=== PATIENT | male | born 1965 | race Caucasian/White ===

== ENCOUNTER 2017-06-22 11:51 | Inpatient (IN) | payer BC ==
[~2017-06-22] VITALS: Ht 176.5 cm; Wt 110.9 kg
[2017-06-22 12:20] VITALS: BP 118/73
[2017-06-22] MEDS ORDERED: CYCLOBENZAPRINE 10 MG TABLET. PO PRN (12:30)
[2017-06-22] MEDS ORDERED: ONDANSETRON ODT 4 MG TAB.RAPDIS PO PRN (12:30)
[2017-06-22] MEDS: IV NORMAL SALINE 1,000ML 1,000 ML IV SCH ×3 (12:30→20:48)
[2017-06-22] MEDS ORDERED: MORPHINE SULFATE 4 MG/ML DISP.SYRIN. IV PRN (12:30)
[2017-06-22] MEDS ORDERED: CYCL-331 PO (12:38)
[2017-06-22] MEDS ORDERED: NAPR-514 PO (12:38)
[2017-06-22] MEDS ORDERED: SULF1TAB24 PO (12:38)
[2017-06-22] MEDS: MORPHINE SULFATE 4 MG/ML DISP.SYRIN. IV PRN ×2 (12:42→20:49)
[2017-06-22 13:01] LABS: BASO % 1 % (0-3); EOS # 0.2 x10^3/uL (0.0-0.7); EOS % 2 % (0-3); HEMOGLOBIN 15.2 g/dL (13.0-17.5); LYMPH # 2.1 x10^3/uL (1.0-4.8); LYMPH % 26 % (24-48); MEAN CORPUSCULAR HEMOGLOBIN 29 pg (25-35); MEAN CORPUSCULAR HGB CONC 34 g/dL (31-37); MEAN CORPUSCULAR VOLUME 87 fL (79-100); MONO # 0.6 x10^3/uL (0.0-1.1); MONO % 8 % (0-9); NEUT % 63 % (31-73); PLATELET COUNT 225 x10^3/uL (140-400); RED CELL DISTRIBUTION WIDTH 13.8 % (11.5-14.5)
[2017-06-22 13:12] LABS: BACTERIA,URINE 0 /HPF (0-FEW); BILIRUBIN,URINE NEG (NEG); CLARITY,URINE HAZY; COLOR,URINE STRAW; GLUCOSE,URINE NEG (NEG); NITRITE,URINE NEG (NEG); SQUAMOUS EPITHELIAL CELL,UR OCC /LPF; UROBILINOGEN,URINE 0.2 mg/dL (0.2 mg/dL)
[2017-06-22 13:21] LABS: ALBUMIN 3.5 g/dL (3.4-5.0); ALBUMIN/GLOBULIN RATIO 0.8 (1.0-1.7); CALCIUM 8.7 mg/dL (8.5-10.1); CREATININE 1.3 mg/dL (0.7-1.3); GFR 58.2; POTASSIUM 4.2 mmol/L (3.5-5.1); TOTAL BILIRUBIN 0.4 mg/dL (0.2-1.0); TOTAL PROTEIN 7.9 g/dL (6.4-8.2)
--- NOTE | 2017-06-22 16:02 | RAD ---
Renal ultrasound, 06/22/2017: HISTORY: Kidney stones The right kidney measures 12.8 cm in length while the left kidney measures 12.7 cm. There are several small echogenic foci centrally in both kidneys representing the patient's known intrarenal calculi. The renal parenchymal echogenicity is otherwise unremarkable. There is no evidence of hydronephrosis or a renal mass. The partially filled urinary bladder is unremarkable. IMPRESSION: 1. Bilateral intrarenal calculi, best demonstrated on the recent CT study. 2. No current hydronephrosis. Electronically signed by: Eliot Castrejon MD (06/22/2017 3:58 PM) [facility]
[2017-06-22 20:08] VITALS: BP 115/71
[2017-06-22] MEDS: LACTOBACILLUS RHAMNOSUS GG 1 CAPSULE. PO SCH (20:48)
[2017-06-22] MEDS: SMZ/TMP 800/160MG TABLET. PO SCH (20:49)
[2017-06-22] MEDS: NAPROXEN 500 MG TABLET PO SCH (20:49)
[2017-06-22] MEDS ORDERED: SMZ/TMP 800/160MG TABLET. PO SCH (21:00)
[2017-06-23 00:58] VITALS: BP 99/61
[2017-06-23 06:38] VITALS: BP 101/61
[2017-06-23] MEDS ORDERED: TAMSULOSIN 0.4 MG CAP.ER.24H. PO SCH (09:00)
[2017-06-23] MEDS: LACTOBACILLUS RHAMNOSUS GG 1 CAPSULE. PO SCH (09:20)
[2017-06-23] MEDS: SMZ/TMP 800/160MG TABLET. PO SCH (09:20)
[2017-06-23] MEDS: NAPROXEN 500 MG TABLET PO SCH (09:21)
--- NOTE | 2017-06-23 10:12 | DS ---
DATE OF DISCHARGE: 06/23/2017 HOSPITAL COURSE: The patient was admitted with severe left flank pain. The patient has a long history of kidney stones. He has had multiple kidney stones and Dr. Negron in the past has taken them out. Apparently, had used lithotripsy because of his unusual positioning. The patient otherwise is resting fairly comfortably, he was receiving IV pain medication, IV antibiotic therapy. The patient continued to be monitored carefully, he will be transferred down to [place] for further urological evaluation that is not available at this institution. IMPRESSION: Nephrolithiasis with severe pain, not able to pass them on his own, will need to go ahead and transfer for urological consultation. HARSHAD CHAVARRIA MD DR: MELISSA/amira JOB#: [id number] / [id number]
[2017-06-23 11:27] VITALS: BP 104/63
== END 2017-06-23 11:37 | disposition short-term general hospital (02) | DRG 694 ==
LOC: 1 SOUTH 12:00
PROVIDERS: ADMIT Family Medicine; ATTEND Family Medicine
DX: N20.0 Calculus of kidney (principal)
CPT/HCPCS: 36415; 74176; 76770; 80053; 81001; 85025; 87086; J1956; J2270; J7030

== ENCOUNTER → 2018-03-29 | Outpatient (CLI) | payer BC ==
[~2018-03-29] MED LIST: CYCL-331 PO; NAPR-514 PO; SULF1TAB24 PO
--- NOTE | 2018-03-29 11:03 | RAD ---
Examination: CT of the abdomen pelvis without contrast HISTORY: History of kidney stones COMPARISON: 06/19/2017 TECHNIQUE: Axial CT images of the abdomen pelvis were performed without contrast. Coronal and sagittal reformats are performed Exposure: One or more of the following individualized dose reduction techniques were utilized for this examination: 1. Automated exposure control 2. Adjustment of the mA and/or kV according to patient size 3. Use of iterative reconstruction technique FINDINGS: The bibasilar lungs are clear. No evidence of free air identified in the abdomen. The evaluation of the solid organs is limited due to lack of IV contrast. Evaluation of bowel is limited due to lack of oral contrast. The visualized noncontrasted liver demonstrates mild decreased attenuation. The visualized spleen, adrenals grossly appears unremarkable. The gallbladder is mildly distended. Unchanged large calcified gallstone identified in the proximal gallbladder. The stomach is mildly distended. The visualized pancreas grossly appears unchanged. The small bowel is nondilated. Feces and gas noted in the colon. The appendix is normal. Multiple calcified bilateral intrarenal collecting system identified in the bilateral kidneys. The largest intrarenal collecting system calculus measures 6 mm in the right kidney. Mild left-sided hydronephrosis. Moderate right-sided hydronephrosis and mild right hydroureter identified with calculus measuring 5.5 mm in the distal right ureter. The urinary bladder is mildly distended. Caliber of the aorta grossly appears unremarkable. Moderate degenerative changes lumbar spine. IMPRESSION: 1. Moderate right-sided hydronephrosis and mild right hydronephrosis with 5.5 mm calculus in the distal right ureter just proximal to the right ureterovesical junction. Minimal left-sided hydronephrosis without obstructing calculus on the left. 2. Bilateral nephrolithiasis. 3. Cholelithiasis unchanged. 4. Mild hepatic steatosis. Electronically signed by: Aba Rolon MD (03/29/2018 11:00 AM) [place] [id number]
== END | disposition home or self-care (01) ==
LOC: CT 10:23
PROVIDERS: ATTEND Family Medicine
DX: N13.2 Hydronephrosis with renal and ureteral calculous obstruction (principal); K80.20 Calculus of gallbladder without cholecystitis without obstruction; K76.0 Fatty (change of) liver, not elsewhere classified; N32.89 Other specified disorders of bladder
CPT/HCPCS: 74176

== ENCOUNTER → 2018-10-05 | Outpatient (CLI) | payer BC ==
[~2018-10-05] MED LIST changes: +IOHEXOL 240 MG/ML 50ML VIAL. ONE
[2018-10-05 10:51] LABS: BASO % 0 % (0-3); EOS # 0.1 x10^3/uL (0.0-0.7); EOS % 1 % (0-3); HEMATOCRIT 45.8 % (39.0-53.0); HEMOGLOBIN 15.2 g/dL (13.0-17.5); LYMPH # 1.9 x10^3/uL (1.0-4.8); LYMPH % 25 % (24-48); MEAN CORPUSCULAR HEMOGLOBIN 29 pg (25-35); MEAN CORPUSCULAR HGB CONC 33 g/dL (31-37); MEAN CORPUSCULAR VOLUME 88 fL (79-100); MONO # 0.6 x10^3/uL (0.0-1.1); MONO % 8 % (0-9); NEUT # 4.8 x10^3uL (1.8-7.7); NEUT % 65 % (31-73); PLATELET COUNT 240 x10^3/uL (140-400); RED CELL DISTRIBUTION WIDTH 14.2 % (11.5-14.5); WHITE BLOOD COUNT 7.3 x10^3/uL (4.0-11.0)
[2018-10-05 11:14] LABS: ALBUMIN 3.4 g/dL (3.4-5.0); ALBUMIN/GLOBULIN RATIO 0.7 (1.0-1.7); CALCIUM 8.9 mg/dL (8.5-10.1); CREATININE 1.3 mg/dL (0.7-1.3); POTASSIUM 4.3 mmol/L (3.5-5.1); TOTAL BILIRUBIN 0.3 mg/dL (0.2-1.0); TOTAL PROTEIN 8.4 g/dL (6.4-8.2)
[2018-10-05] MEDS: IOHEXOL 240 MG/ML 50ML VIAL. PO ONE (11:54)
[2018-10-05] MEDS: IOHEXOL 300 MG/ML 75 ML VIAL. IV ONE (11:54)
--- NOTE | 2018-10-05 12:55 | RAD ---
CT study abdomen and pelvis with contrast Clinical indications: Right-sided abdominal pain and nausea. TECHNIQUE: After IV infusion of 75 cc of Omnipaque 300, helical CT scanning of the abdomen and pelvis was performed. GI contrast was administered per mouth. PQRS compliance Statement One or more of the following individualized dose reduction techniques were utilized for this study: 1. Automated exposure control 2. Adjustment of the mA and/or kV according to patient size 3. Use of iterative reconstruction technique COMPARISON: March 29, 2018 CT study of the abdomen and pelvis. FINDINGS: Diffuse fatty infiltration of the liver is seen. The spleen is not enlarged. Pancreas enhances homogeneously. There is a small lipoma of the tail of the pancreas measuring 13 mm and is unchanged. Prominent gallstone is seen within the neck of the gallbladder measuring 19 mm. Gallbladder is not abnormally distended and no gallbladder wall thickening is seen. No extrahepatic biliary ductal dilatation is evident. No adrenal mass is seen. Small bilateral renal stones are seen. No hydronephrosis or hydroureter is seen today. Scarring of the inferior pole of the left kidney is seen which may be due to chronic pyelonephritis. The previously seen stone of the right UVJ is not evident today. The urinary bladder wall is smooth. No focal aneurysmal dilatation of the abdominal aorta is seen. No enlarged abdominal or pelvic lymphadenopathy is seen. No obstructive bowel pattern is evident. The terminal ileum is unremarkable. The appendix is normal. No free fluid or free air or mesenteric edema is seen. No lung base consolidation is evident. No lytic process is seen. IMPRESSION: 19 mm gallstone is seen within the neck of the gallbladder. Bilateral renal stones without hydronephrosis or hydroureter. Previously seen stone at the right UVJ is not evident today. Electronically signed by: Jamil Mohan MD (10/05/2018 12:52 PM) [id number]
== END | disposition home or self-care (01) ==
LOC: CT 10:04
PROVIDERS: ATTEND Physician Assistant
DX: K80.20 Calculus of gallbladder without cholecystitis without obstruction (principal); K76.0 Fatty (change of) liver, not elsewhere classified; N20.0 Calculus of kidney
CPT/HCPCS: 36415; 74177; 80053; 82150; 83690; 85025; Q9966; Q9967

== ENCOUNTER 2019-03-02 17:07 | Emergency (ER) | payer BC ==
[~2019-03-02 17:07] MED LIST changes: -IOHEXOL 240 MG/ML 50ML VIAL. ONE
[2019-03-02] MEDS ORDERED: IV RINGERS SOLUTION,LACTATED 1,000 ML IV SCH (17:33)
[2019-03-02] MEDS ORDERED: ASPIRIN 81 MG TAB.CHEW PO ONE (17:45)
[2019-03-02] MEDS ORDERED: KETOROLAC 30 MG/ML VIAL. IVP ONE ×2 (17:45→18:00)
[2019-03-02] MEDS ORDERED: ONDANSETRON PF 4 MG/2 ML VIAL. IVP ONE (18:00)
--- NOTE | 2019-03-02 18:04 | RAD ---
CHEST PA LATERAL Technique: PA and lateral views of the chest were obtained. Clinical History: Comparison: None. Findings: There are low lung volumes causing crowding of pulmonary vasculature. The heart is mildly enlarged. There is density along the pleural margin laterally on the right. There is mild perihilar linear opacities. Impression: 1. Mild cardiomegaly. 2. Mild right effusion and bilateral infiltrates suggesting atypical pneumonia or mild CHF. Electronically signed by: Ed Domínguez III, MD (03/02/2019 6:01 PM) [facility]
--- NOTE | 2019-03-02 18:06 | RAD ---
2 view abdomen pelvis Supine and upright AP view abdomen pelvis HISTORY: Right-sided chest pain and flank pain and history of kidney stones There is air and scattered throughout portions the colon. There is a paucity small bowel gas. There is no free air. There is evidence prior calcific 3. There is obscuration of renal shadows by overlying bowel gas. There is no calcification seen along the expected course of the ureters. There are a few vague densities bilaterally which could be nonobstructive renal stones. IMPRESSION: No acute findings. Electronically signed by: Ed Domínguez III, MD (03/02/2019 6:02 PM) [facility]
--- NOTE | 2019-03-02 18:55 | PHYS DOC ---
Past History Past Medical History: No Pertinent History, Kidney Stones Past Surgical History: Cholecystectomy, Other Additional Past Surgical Histo: hernia repair Alcohol Use: None Drug Use: None Adult General Chief Complaint Chief Complaint: RIB PAIN.. ".. I was moving some concrete block to put in back.. or the snow and ice traction.. that the only thing I can think of that may caused me to have this severe pain... I ve had kidney stones.. 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 . Pt. has had previous kidney stones. No hx of recent trauma. Has had his gallbladder out. No history of cardiac issues. Has history of kidney stones. No history of DVTs with him or family members. No history of pulmonary embolisms. Patient does state he was moving concrete blocks earlier and he may have pulled a muscle that time. Pain is 10 out of 10 on right lower lung field and upper abdomen. Pain is worse with deep breaths and cough. No history of fever or chills. Patient normally follows with Dr. Chavarria. Review of Systems Review of Systems Constitutional: Denies fever or chills [] Eyes: Denies change in visual acuity, redness, or eye pain [] HENT: Denies nasal congestion or sore throat [] Respiratory: Denies cough or shortness of breath []. Patient complaints of pleuritic pain right lower chest wall. Cardiovascular: No additional information not addressed in HPI [] GI complaints right upper quadrant abdominal pain, nausea. Denies, vomiting, bloody stools or diarrhea []some pain with percussion of right flank : Denies dysuria or hematuria [] Musculoskeletal: Denies back pain or joint pain [] Integument: Denies rash or skin lesions [] Neurologic: Denies headache, focal weakness or sensory changes [] Endocrine: Denies polyuria or polydipsia [] All other systems were reviewed and found to be within normal limits, except as documented in this note. Family History Family History Noncontributory Current Medications Current Medications Current Medications Medications (Trade) Dose Ordered Sig/Denita Start Time Stop Time Status Last Admin Dose Admin Aspirin (Children'S Aspirin) 324 mg 1X ONCE 03/02/19 17:45 03/02/19 17:46 DC Ketorolac Tromethamine (Toradol 30mg Vial) 30 mg 1X ONCE 03/02/19 18:00 03/02/19 18:01 DC Lactated Ringer's 1,000 ml @ 1,000 mls/hr Q1H 03/02/19 17:33 03/02/19 18:32 DC Ondansetron HCl (Zofran) 8 mg 1X ONCE 03/02/19 18:00 03/02/19 18:01 DC Allergies Allergies Allergies Coded Allergies Type Severity Reaction Last Updated Verified codeine Allergy Unknown 04/12/14 Yes Physical Exam Physical Exam Constitutional: Moderate acute distress, non-toxic appearance. [] HENT: Normocephalic, atraumatic, bilateral external ears normal, oropharynx moist, no oral exudates, nose normal. [] Eyes: PERRLA, EOMI, conjunctiva normal, no discharge. [] Neck: Normal range of motion, no tenderness, supple, no stridor. [] Cardiovascular:Heart rate regular rhythm, no murmur [] Lungs & Thorax: Bilateral breath sounds equal apex with few scattered wheezes on auscultation . Patient []has severe right lower chest wall pain with deep breaths and cough Abdomen: Bowel sounds normal, soft, . no masses, no pulsatile masses. [] Patient has tenderness on percussion of right flank and right upper abdomen. Patient has old surgical scars from cholecystectomy Skin: Warm, dry, no erythema, no rash. [] Back: No tenderness, no CVA tenderness. [] Extremities: No tenderness, no cyanosis, no clubbing, ROM intact, no edema. [] No cording appreciated in his legs Neurologic: Alert and oriented X 3, normal motor function, normal sensory function, no focal deficits noted. [] Psychologic: Affect anxious, judgement normal, mood normal. [] Current Patient Data Vital Signs Vital Signs Date Time Temp Pulse Resp B/P (MAP) Pulse Ox O2 Delivery O2 Flow Rate FiO2 03/02/19 18:33 24 Room Air 98.0 EKG EKG My interpretation EKG shows a sinus rhythm at 80 bpm. No findings acute STEMI with contralateral changes. [] Radiology/Procedures Radiology/Procedures [ IMAGING REPORT Signed PATIENT: JESSICA BEAR ACCOUNT: [id number] : 1965 LOCATION: ER AGE: 53 SEX: M EXAM STATUS: REG ER ORD. PHYSICIAN: COLETTE DEL CID MD REASON: Severe right sided flank and abdomen pain. HX:L[place], kidney stone PROCEDURE: CT ABDOMEN PELVIS WO CONTRAST Exam: CT of chest, with contrast. CT abdomen and pelvis without contrast INDICATION: Severe right-sided flank and abdominal pain TECHNIQUE: Sequential axial images through the chest obtained following the administration of 90 mL of Omni 350 IV contrast. Sagittal and coronal reformatted images were reconstructed from the axial data and reviewed. 3-D reformatted images were reconstructed from the axial data and reviewed. Sequential axial images through the abdomen and pelvis were obtained without the administration of IV contrast. Sagittal and coronal reformatted images were reconstructed from the axial data and reviewed. Comparisons: None FINDINGS: Visualized portions of the thyroid are unremarkable. No enlarged mediastinal lymph nodes are identified. Heart size is normal. No pericardial effusion. Thoracic aorta has normal course and caliber. Pulmonary artery is nonenlarged. No pulmonary embolus identified within the main, lobar or segmental pulmonary arteries. Airways are patent. Strandy opacities noted at the lung bases, likely atelectasis. There is a 3 mm nodule in the right middle lobe series 4 image 65. No pleural effusion or thickening. There is diffuse hepatic steatosis. There is mild inflammatory changes noted along the inferior margin of the right hepatic lobe. Spleen, pancreas, and adrenals are unremarkable. Gallbladder surgically absent. No perinephric inflammation or hydronephrosis. Several nonobstructing bilateral renal calculi are noted. No ureteral calculi. Bladder is distended and appears thin-walled. Prostate is not enlarged. Large and small bowel are unremarkable. Appendix is normal. No free intra-abdominal air or fluid. No obstruction. Abdominal aorta has a normal course and caliber. No enlarged intra-abdominal lymph nodes are identified. No suspicious osseous lesions or acute fractures. IMPRESSION: 1. Mild inflammatory changes surrounding the inferior margin of the right hepatic lobe. There is also diffuse hepatic steatosis. Overall findings the seen in the setting of steatohepatitis. Correlate with LFTs. 2. No pulmonary embolus identified within the main, lobar or segmental pulmonary arteries. 3. A 3 mm nodule in the right middle lobe. In a low-risk patient no further follow-up imaging is recommended. In a high-risk patient optional one-year follow-up CT can BE performed. Exposure: One or more of the following in the visualized dose reduction techniques were utilized for this examination: 1. Automated exposure control 2. Adjustment of the MA and/or KV according to patient size 3. Use of iterative of reconstructive technique Electronically signed by: Nadege Mojica MD (03/02/2019 9:09 PM) [facility] DICTATED AND SIGNED BY: NADEGE MOJICA MD DATE: 03/02/192108 CC: HARSHAD CHAVARRIA MD; COLETTE DEL CID MD ~][place] [address] IMAGING REPORT Signed PATIENT: JESSICA BEAR ACCOUNT: [id number] : 1965 LOCATION: ER AGE: 53 SEX: M EXAM STATUS: REG ER ORD. PHYSICIAN: COLETTE DEL CID MD REASON: Severe right sided chest and flank pain. Hx:Kidney stones PROCEDURE: ABDOMEN SUPINE & UPRIGHT 2 view abdomen pelvis Supine and upright AP view abdomen pelvis HISTORY: Right-sided chest pain and flank pain and history of kidney stones There is air and scattered throughout portions the colon. There is a paucity small bowel gas. There is no free air. There is evidence prior calcific 3. There is obscuration of renal shadows by overlying bowel gas. There is no calcification seen along the expected course of the ureters. There are a few vague densities bilaterally which could be nonobstructive renal stones. IMPRESSION: No acute findings. Electronically signed by: Tania Pierson III, MD (03/02/2019 6:02 PM) [facility] DICTATED AND SIGNED BY: TANIA PIERSON III, MD DATE: 03/02/191801 CC: HARSHAD CHAVARRIA MD; COLETTE DEL CID MD ~ Course & Med Decision Making Course & Med Decision Making Pertinent Labs and Imaging studies reviewed. (See chart for details) . The patient take Tylenol and ibuprofen as needed for pain. Patient follow-up with Dr. Chavarria. Patient return if any concerns. Patient's pain almost completely resolved at time of discharge. Pt. requesting discharge home. Decline further work up at this time or admission. Declined further blood draw s. Exhibit UCAR capacity. Patient return if any concerns. Impression: 1. Area of inflammation at upper dome of liver on CT-suspect this is the cause of his pleuritic pain 2. Possible localizes hepatic infarct or hepatitis. 3. Mild elevation of alkaline phosphatase 143 4. Mild elevation in d-dimer 0.83 5. Mild elevation in glucose 125 6. Hx. of Kidney Stones- would include this in the differential Dx. [] Dragon Disclaimer Dragon Disclaimer This electronic medical record was generated, in whole or in part, using a voice recognition dictation system. Departure Departure: Disposition: HOME/RESIDENCE PRIOR TO ADM Condition: STABLE Referrals: HARSHAD CHAVARRIA MD (PCP) Scripts Hydrocodone/Ibuprofen (HYDROCODONE-IBUPROFEN 7.5-200 ) 1 Each Tablet 1 TAB PO PRN Q6HRS PRN for PAIN, #30 TAB 0 Refills Prov: COLETTE DEL CID MD 03/02/19 Dragon Disclaimer This chart was dictated in whole or in part using Voice Recognition software in a busy, high-work load, and often noisy Emergency Department environment. It may contain unintended and wholly unrecognized errors or omissions. COLETTE DEL CID MD Mar 02, 2019 18:55
[2019-03-02 19:07] LABS: ALBUMIN 3.5 g/dL (3.4-5.0); CALCIUM 8.9 mg/dL (8.5-10.1); CREATININE 1.3 mg/dL (0.7-1.3); TOTAL BILIRUBIN 0.4 mg/dL (0.2-1.0); TOTAL PROTEIN 7.9 g/dL (6.4-8.2)
[2019-03-02 19:08] LABS: DIRECT BILIRUBIN 0.2 mg/dL (0.0-0.2); MAGNESIUM 1.8 mg/dL (1.8-2.4)
[2019-03-02 19:11] LABS: HEMATOCRIT 47.6 % (39.0-53.0); HEMOGLOBIN 15.7 g/dL (13.0-17.5); LYMPH % 15 % (24-48); MEAN CORPUSCULAR HEMOGLOBIN 29 pg (25-35); MEAN CORPUSCULAR HGB CONC 33 g/dL (31-37); MEAN CORPUSCULAR VOLUME 88 fL (79-100); MONO % 9 % (0-9); NEUT % 75 % (31-73); PLATELET COUNT 270 x10^3/uL (140-400); RED BLOOD COUNT 5.43 x10^6/uL (4.30-5.70); RED CELL DISTRIBUTION WIDTH 14.1 % (11.5-14.5); WHITE BLOOD COUNT 10.9 x10^3/uL (4.0-11.0)
[2019-03-02 19:12] LABS: BASO % 0 % (0-3); EOS # 0.1 x10^3/uL (0.0-0.7); EOS % 1 % (0-3); LYMPH # 1.6 x10^3/uL (1.0-4.8); NEUT # 8.1 x10^3uL (1.8-7.7)
[2019-03-02 19:32] LABS: BACTERIA,URINE 0 /HPF (0-FEW); BILIRUBIN,URINE NEG (NEG); CLARITY,URINE HAZY; COLOR,URINE AMBER; GLUCOSE,URINE NEG (NEG); NITRITE,URINE NEG (NEG); RBC,URINE OCC /HPF (0-2); SQUAMOUS EPITHELIAL CELL,UR OCC /LPF; WBC,URINE 0 /HPF (0-4)
[2019-03-02] MEDS ORDERED: IOHEXOL 350 MG/ML 100 ML VIAL. IV ONE (20:30)
[2019-03-02 21:05] LABS: INFLUENZA A PATIENT NEGATIVE (NEGATIVE); INFLUENZA B PATIENT NEGATIVE (NEGATIVE)
--- NOTE | 2019-03-02 21:12 | RAD ---
Exam: CT of chest, with contrast. CT abdomen and pelvis without contrast INDICATION: Severe right-sided flank and abdominal pain TECHNIQUE: Sequential axial images through the chest obtained following the administration of 90 mL of Omni 350 IV contrast. Sagittal and coronal reformatted images were reconstructed from the axial data and reviewed. 3-D reformatted images were reconstructed from the axial data and reviewed. Sequential axial images through the abdomen and pelvis were obtained without the administration of IV contrast. Sagittal and coronal reformatted images were reconstructed from the axial data and reviewed. Comparisons: None FINDINGS: Visualized portions of the thyroid are unremarkable. No enlarged mediastinal lymph nodes are identified. Heart size is normal. No pericardial effusion. Thoracic aorta has normal course and caliber. Pulmonary artery is nonenlarged. No pulmonary embolus identified within the main, lobar or segmental pulmonary arteries. Airways are patent. Strandy opacities noted at the lung bases, likely atelectasis. There is a 3 mm nodule in the right middle lobe series 4 image 65. No pleural effusion or thickening. There is diffuse hepatic steatosis. There is mild inflammatory changes noted along the inferior margin of the right hepatic lobe. Spleen, pancreas, and adrenals are unremarkable. Gallbladder surgically absent. No perinephric inflammation or hydronephrosis. Several nonobstructing bilateral renal calculi are noted. No ureteral calculi. Bladder is distended and appears thin-walled. Prostate is not enlarged. Large and small bowel are unremarkable. Appendix is normal. No free intra-abdominal air or fluid. No obstruction. Abdominal aorta has a normal course and caliber. No enlarged intra-abdominal lymph nodes are identified. No suspicious osseous lesions or acute fractures. IMPRESSION: 1. Mild inflammatory changes surrounding the inferior margin of the right hepatic lobe. There is also diffuse hepatic steatosis. Overall findings the seen in the setting of steatohepatitis. Correlate with LFTs. 2. No pulmonary embolus identified within the main, lobar or segmental pulmonary arteries. 3. A 3 mm nodule in the right middle lobe. In a low-risk patient no further follow-up imaging is recommended. In a high-risk patient optional one-year follow-up CT can BE performed. Exposure: One or more of the following in the visualized dose reduction techniques were utilized for this examination: 1. Automated exposure control 2. Adjustment of the MA and/or KV according to patient size 3. Use of iterative of reconstructive technique Electronically signed by: Nadege Hensley MD (03/02/2019 9:09 PM) [facility]
[2019-03-02] MEDS ORDERED: KETOROLAC 30 MG/ML VIAL. ONE (22:08)
[2019-03-02] MEDS ORDERED: ONDANSETRON PF 4 MG/2 ML VIAL. ONE (22:08)
[2019-03-02] MEDS ORDERED: ASPIRIN 81 MG TAB.CHEW ONE (22:08)
[2019-03-02] MEDS ORDERED: HYDR-1179 PO (22:11)
[2019-03-02] MEDS ORDERED: methylPREDNISolone ACETATE 40 MG/ML VIAL. IM ONE (22:30)
[2019-03-02 22:45] VITALS: BP 131/58
--- NOTE | 2019-03-03 00:04 | EKG ---
[address] [address] Test Date: 2019-03-02 Test Time: 18:06:02 Pat Name: JESSICA BEAR Department: Room: Gender: M [employer]: : 1965 Requested By: COLETTE DEL CID Order Number: [id number] Reading MD: Measurements Intervals [place] Rate: 80 P: 31 ME: 172 QRS: 26 QRSD: 76 T: 44 QT: 342 QTc: 398 Interpretive Statements SINUS RHYTHM NORMAL ECG RI6.01 No previous ECG available for comparison
[2019-03-03 21:55] LABS: THYROID STIM HORMONE (TSH) 0.973 uIU/mL (0.358-3.740)
== END 2019-03-02 22:46 | disposition home or self-care (01) ==
LOC: ER 17:07
DX: R07.81 Pleurodynia (principal); K75.9 Inflammatory liver disease, unspecified; R74.8 Abnormal levels of other serum enzymes; R79.1 Abnormal coagulation profile; Z87.442 Personal history of urinary calculi; Z90.49 Acquired absence of other specified parts of digestive tract
CPT/HCPCS: 36415; 71046; 71275; 74019; 74176; 80048; 80061; 80076; 81001; 82550; 83735; 83880; 84443; 84484; 85025; 85379; 85610; 85730; 86705; 86709; 86803; 87070; 87340; 87804; 87880; 93005; 96372; 96374; 96375; 99285; J1030; J1885; J2405; J7120; Q9967

== ENCOUNTER 2020-06-25 22:37 | Emergency (ER) | payer BC ==
[~2020-06-25] VITALS: Ht 177.8 cm; Wt 118.8 kg
[~2020-06-25 22:37] MED LIST changes: +HYDR-1179 PO
[2020-06-25 23:01] VITALS: BP 141/99
--- NOTE | 2020-06-25 23:28 | PHYS DOC ---
Past History Past Medical History: Kidney Stones Past Surgical History: Cholecystectomy, Other Additional Past Surgical Histo: UMBILICAL HERNIA REPAIR Alcohol Use: Rarely Drug Use: None Adult General Chief Complaint Chief Complaint: FLANK PAIN HPI HPI Patient is a 55-year-old male presenting for right sided chest wall/flank pain. Has history of kidney stones that has required lithotripsy and other invasive intervention but states this feels different as typically his kidney stones are accompanied with lower back pain. Reports while at rest suffering right-sided chest wall/flank pain that does not radiate. Nothing known makes better or worse. Pain is sharp and right-sided as mentioned without radiation. Timing of symptoms has been constant since onset. He rates his pain 4/10 severity. He has no other known medical diagnoses, takes no other medications on a daily basis, uses smokeless tobacco otherwise does not drink or use illicit drugs. He is on no medications on a daily basis. No fever, no recent sick contacts, ingestion, trauma or other inciting event or exposure Review of Systems Review of Systems Fourteen body systems of review of systems have been reviewed. See HPI for pertinent positives and negative responses, other cort[place] all other systems are negative, non-pertinent or non-contributory Current Medications Current Medications Current Medications Medications (Trade) Dose Ordered Sig/Denita Start Time Stop Time Status Last Admin Dose Admin Ketorolac Tromethamine (Toradol 15mg Vial) 15 mg 1X ONCE 06/25/20 23:30 06/25/20 23:31 UNV Allergies Allergies Allergies Coded Allergies Type Severity Reaction Last Updated Verified codeine Allergy Unknown 04/12/14 Yes Physical Exam Physical Exam Constitutional: Well developed, well nourished, no acute distress, non-toxic appearance but does appear to be in pain. HENT: Normocephalic, atraumatic, bilateral external ears normal, oropharynx moist, no oral exudates, nose normal. Eyes: PERRLA, EOMI, conjunctiva normal, no discharge. Neck: Normal range of motion, no tenderness, supple, no stridor. Cardiovascular: Heart rate regular, sinus rhythm, no murmurs rubs or gallops Lungs & Thorax: Bilateral breath sounds clear to auscultation Abdomen: Bowel sounds normal, soft, tenderness with palpation of inferior portion of right chest wall and subsequent right flank with guarding present, no rebound, no masses, no pulsatile masses. Nonsurgical abdomen, no peritoneal signs Skin: Warm, dry, no erythema, no rash. Back: No tenderness, right CVA tenderness. Extremities: No tenderness, no cyanosis, no clubbing, ROM intact, no edema. Neurologic: Alert and oriented X 3, grossly normal motor & sensory function, no focal deficits noted. Psychologic: Affect normal, judgement normal, mood normal. Current Patient Data Vital Signs Vital Signs Date Time Temp Pulse Resp B/P (MAP) Pulse Ox O2 Delivery O2 Flow Rate FiO2 06/25/20 23:01 98.2 94 22 141/99 (113) 95 Room Air Lab Results Laboratory Tests Test 06/25/20 23:33 White Blood Count 14.1 x10^3/uL Red Blood Count 5.28 x10^6/uL Hemoglobin 15.3 g/dL Hematocrit 47.0 % Mean Corpuscular Volume 89 fL Mean Corpuscular Hemoglobin 29 pg Mean Corpuscular Hemoglobin Concent 33 g/dL Red Cell Distribution Width 13.9 % Platelet Count 240 x10^3/uL Neutrophils (%) (Auto) 77 % Lymphocytes (%) (Auto) 13 % Monocytes (%) (Auto) 8 % Eosinophils (%) (Auto) 1 % Basophils (%) (Auto) 1 % Neutrophils # (Auto) 10.8 x10^3uL Lymphocytes # (Auto) 1.9 x10^3/uL Monocytes # (Auto) 1.1 x10^3/uL Eosinophils # (Auto) 0.1 x10^3/uL Basophils # (Auto) 0.1 x10^3/uL Urine Collection Type Unknown Urine Color Yellow Urine Clarity Clear Urine pH 5.5 Urine Specific [place] 1.025 Urine Protein Neg Urine Glucose (UA) Neg mg/dL Urine Ketones (Stick) Trace mg/dL Urine Blood Trace Urine Nitrite Neg Urine Bilirubin Neg Urine Urobilinogen Dipstick 1.0 mg/dL Urine Leukocyte Esterase Neg Urine RBC 0 /HPF Urine WBC 0 /HPF Urine Squamous Epithelial Cells Occ /LPF Urine Bacteria 0 /HPF Sodium Level 143 mmol/L Potassium Level 4.4 mmol/L Chloride Level 107 mmol/L Carbon Dioxide Level 29 mmol/L Anion Gap 7 Blood Urea Nitrogen 19 mg/dL Creatinine 1.5 mg/dL Estimated GFR (Cockcroft-Gault) 48.8 BUN/Creatinine Ratio 13 Glucose Level 123 mg/dL Calcium Level 9.0 mg/dL Total Bilirubin 0.3 mg/dL Aspartate Amino Transf (AST/SGOT) 24 U/L Alanine Aminotransferase (ALT/SGPT) 39 U/L Alkaline Phosphatase 131 U/L Troponin I Quantitative < 0.017 ng/mL Total Protein 8.6 g/dL Albumin 3.3 g/dL Albumin/Globulin Ratio 0.6 Current Medications Medications (Trade) Dose Ordered Sig/Denita Route PRN Reason Start Time Stop Time Status Last Admin Dose Admin Ketorolac Tromethamine (Toradol 15mg Vial) 15 mg 1X ONCE IVP 06/25/20 23:30 06/25/20 23:31 DC 06/25/20 23:36 EKG EKG EKG ordered and interpreted by myself at 2223 hrs. as sinus rhythm at 81 bpm, unremarkable intervals, no axis deviation, no acute ischemic findings, no STEMI Radiology/Procedures Radiology/Procedures Exam: Chest one view INDICATION: Right chest wall pain TECHNIQUE: Frontal view of the chest Comparisons: 03/02/2019 FINDINGS: Heart is mildly enlarged pulmonary vessels are within normal limits. The lung and pleural spaces are clear. IMPRESSION: No acute pulmonary process. Electronically signed by: Nadege Hensley MD (06/25/2020 11:55 PM) [facility] //////////////////// INDICATION: Reason: RIGHT FLANK PAIN Hx: Kidney stones / Spl. Instructions: / History: . COMPARISON: March 02, 2019 TECHNIQUE: Axial CT images obtained through the abdomen and pelvis without contrast. One or more of the following individualized dose reduction techniques were utilized for this examination: 1. Automated exposure control; 2. Adjustment of the mA and/or kV according to patient size; 3. Use of iterative reconstruction technique. FINDINGS: Mild patchy opacities at left greater than right lung base. Abdominal aorta is not aneurysmal. Fat-containing inguinal hernias. Postcholecystectomy changes. Interval decrease in haziness the fat adjacent to right lobe the liver. No peripancreatic fluid collection. Prominent lymph node is again seen adjacent to the pancreas. Mild fullness of the pancreatic tail that this is similar to prior may be the patient's baseline appearance. Spleen unremarkable. Urinary bladder is partially distended. Multiple bilateral nonobstructive renal stones with the largest on the left measuring up to 4 mm. Contour deformity left kidney. No hydronephrosis. Prostate calcifications. Colonic diverticulosis. No periappendiceal inflammatory changes. No dilated loops of bowel to suggest obstruction. Borderline size lymph node is again seen within the epicardial fat. Degenerative changes the spine with multilevel central canal and neural foraminal stenosis. Degenerative changes the hips. IMPRESSION: * No evidence of bowel obstruction or appendicitis. * Mild patchy opacities at lung bases which could be from atelectasis or early infiltrate. * Multiple bilateral renal stones without hydronephrosis. Electronically signed by: Eyal Miranda MD (06/26/2020 12:03 AM) DESKTOP- [id number] Heart Score C/O Chest Pain: No HEART Score for Chest Pain: HEART Score for Chest Pain Response (Comments) Value History Slighlty/Non-Suspicious 0 ECG Normal 0 Age >45 - < 65 1 Risk Factors 1 or 2 Risk Factors 1 Troponin < Normal Limit 0 Total 2 Risk Factors: Risk Factors: DM, Current or recent (<one month) smoker, HTN, HLP, family history of CAD, obesity. Risk Scores: Risk Factors: DM, Current or recent (<one month) smoker, HTN, HLP, family history of CAD, obesity. Course & Med Decision Making Course & Med Decision Making Vital signs stable. HPI and physical exam nonconcerning for emergent or surgical findings Comprehensive ER work-up obtained concerning for bilateral lower lung opacities and bilateral nonobstructing kidney stones without kidney involvement. Patient improved with ER intervention. I disclosed findings at length with good understanding by patient and joint decision was made to treat patient's suspect pneumonia with doxycycline medication. Continued supportive care advised for kidneys with close PCP follow-up advised I disclosed this might be an acute presentation more concerning pathology and reiterated need for close outpatient follow-up. I reviewed heart scores and negative PERC score etc. He has good access to care. States he can be seen by primary care physician by the end of the week which I feel is appropriate. Strict return precautions were discussed with good understanding by patient, all questions and concerns addressed prior to ER departure Dragon Disclaimer Dragon Disclaimer This electronic medical record was generated, in whole or in part, using a voice recognition dictation system. Departure Departure: Impression: Primary Impression: Opacity of lung on imaging study Additional Impression: Bilateral kidney stones Disposition: HOME / SELF CARE / HOMELESS Condition: IMPROVED Referrals: HARSHAD CHAVARRIA MD (PCP) Additional Instructions: As discussed prior to ER departure, there is concern for developing lower lung opacities bilaterally and so, decision was made to treat with antibiotics. Joint decision was made to utilize doxycycline with close outpatient primary care physician follow-up advised. In addition, it was disclosed that you have numerous bilateral kidney stones present that are potentially contributing to your presenting symptoms. None of these are obstructing and there is no associated kidney damage. This pain needs to be followed up in outpatient setting with your primary care physician and urologist as deemed necessary. Any concerning signs or symptoms present prior to outpatient follow-up please do not hesitate to come back for repeat evaluation. It was a pleasure to take care of you and I wish you the best going forward Scripts Doxycycline Hyclate (DOXYCYCLINE HYCLATE) 100 Mg Tablet 1 TAB PO BID for pneumonia, #13 TAB Prov: KRYS RESENDIZ DO 06/26/20 Problem Qualifiers KRYS RESENDIZ DO June 25, 2020 23:28
[2020-06-25] MEDS ORDERED: KETOROLAC 15 MG/ML VIAL. IVP ONE (23:30)
[2020-06-25 23:54] LABS: BASO # 0.1 x10^3/uL (0.0-0.2); BASO % 1 % (0-3); EOS # 0.1 x10^3/uL (0.0-0.7); EOS % 1 % (0-3); HEMOGLOBIN 15.3 g/dL (13.0-17.5); LYMPH # 1.9 x10^3/uL (1.0-4.8); LYMPH % 13 % (24-48); MEAN CORPUSCULAR HEMOGLOBIN 29 pg (25-35); MEAN CORPUSCULAR HGB CONC 33 g/dL (31-37); MEAN CORPUSCULAR VOLUME 89 fL (79-100); MONO # 1.1 x10^3/uL (0.0-1.1); MONO % 8 % (0-9); NEUT # 10.8 x10^3uL (1.8-7.7); NEUT % 77 % (31-73); PLATELET COUNT 240 x10^3/uL (140-400); RED BLOOD COUNT 5.28 x10^6/uL (4.30-5.70); RED CELL DISTRIBUTION WIDTH 13.9 % (11.5-14.5); WHITE BLOOD COUNT 14.1 x10^3/uL (4.0-11.0)
--- NOTE | 2020-06-25 23:57 | RAD ---
Exam: Chest one view INDICATION: Right chest wall pain TECHNIQUE: Frontal view of the chest Comparisons: 03/02/2019 FINDINGS: Heart is mildly enlarged pulmonary vessels are within normal limits. The lung and pleural spaces are clear. IMPRESSION: No acute pulmonary process. Electronically signed by: Nadege Hensley MD (06/25/2020 11:55 PM) THEE
[2020-06-26 00:03] LABS: CREATININE 1.5 mg/dL (0.7-1.3); GFR 48.8; POTASSIUM 4.4 mmol/L (3.5-5.1)
--- NOTE | 2020-06-26 00:06 | RAD ---
INDICATION: Reason: RIGHT FLANK PAIN Hx: Kidney stones / Spl. Instructions: / History: . COMPARISON: March 02, 2019 TECHNIQUE: Axial CT images obtained through the abdomen and pelvis without contrast. One or more of the following individualized dose reduction techniques were utilized for this examinat ion: 1. Automated exposure control; 2. Adjustment of the mA and/or kV according to patient size; 3 . Use of iterative reconstruction technique. FINDINGS: Mild patchy opacities at left greater than right lung base. Abdominal aorta is not aneurysmal. Fat-containing inguinal hernias. Postcholecystectomy changes. Interval decrease in haziness the fat adjacent to right lobe the liver. No peripancreatic fluid collection. Prominent lymph node is again seen adjacent to the pancreas. Mild fullness of the pancreatic tail that this is similar to prior may be the patient's baseline appe arance. Spleen unremarkable. Urinary bladder is partially distended. Multiple bilateral nonobstructive renal stones with the largest on the left measuring up to 4 mm. Con tour deformity left kidney. No hydronephrosis. Prostate calcifications. Colonic diverticulosis. No periappendiceal inflammatory changes. No dilated loops of bowel to suggest obstruction. Borderline size lymph node is again seen within the epicardial fat. Degenerative changes the spine with multilevel central canal and neural foraminal stenosis. Degenerative changes the hips. IMPRESSION: * No evidence of bowel obstruction or appendicitis. * Mild patchy opacities at lung bases which could be from atelectasis or early infiltrate. * Multiple bilateral renal stones without hydronephrosis. Electronically signed by: Eyal Miranda MD (06/26/2020 12:03 AM) [id number]
[2020-06-26 00:09] LABS: ALBUMIN 3.3 g/dL (3.4-5.0); ALBUMIN/GLOBULIN RATIO 0.6 (1.0-1.7); TOTAL BILIRUBIN 0.3 mg/dL (0.2-1.0); TOTAL PROTEIN 8.6 g/dL (6.4-8.2)
[2020-06-26 00:19] LABS: BACTERIA,URINE 0 /HPF (0-FEW); BILIRUBIN,URINE NEG (NEG); CLARITY,URINE CLEAR; COLOR,URINE YELLOW; GLUCOSE,URINE NEG (NEG); NITRITE,URINE NEG (NEG); RBC,URINE 0 /HPF (0-2); SQUAMOUS EPITHELIAL CELL,UR OCC /LPF; WBC,URINE 0 /HPF (0-4)
[2020-06-26] MEDS ORDERED: DOXYCYCLINE HYCLATE 100 MG TABLET PO ONE (00:30)
[2020-06-26] MEDS ORDERED: DOXY100T PO (00:32)
--- NOTE | 2020-06-26 00:54 | EKG ---
[address] [address] Test Date: 2020-06-25 Test Time: 23:19:12 Pat Name: JESSICA BEAR Department: Room: Gender: M [employer] Director: ELDA : 1965 Requested By: KRYS RESENDIZ Order Number: [id number] Reading MD: Measurements Intervals [place] Rate: 81 P: 27 CT: 160 QRS: 31 QRSD: 76 T: 41 QT: 350 QTc: 412 Interpretive Statements SINUS RHYTHM NORMAL ECG RI6.02 No previous ECG available for comparison
== END 2020-06-26 00:44 | disposition home or self-care (01) ==
LOC: ER 22:37
DX: N20.0 Calculus of kidney (principal); J98.4 Other disorders of lung; Z87.442 Personal history of urinary calculi; Z90.49 Acquired absence of other specified parts of digestive tract; Z88.5 Allergy status to narcotic agent
CPT/HCPCS: 36415; 71045; 74176; 80053; 81001; 84484; 85025; 93005; 96374; 99285; J1885